=== PATIENT | female | born 1970 | race Caucasian/White ===

== ENCOUNTER 2024-03-21 12:11 | Emergency (ER) | payer BC, MEDICARE, SELFPAY ==
--- NOTE | ~2024-03-21 | CT_ITS ---
EXAMINATION: CTA chest PE protocol DATE: 03/21/2024 15:43 INDICATION: Chest pain TECHNIQUE: Computed tomography (CT) pulmonary angiogram of the chest was performed with 100 mL Omnipa que-350 intravenous contrast. Additional 3D reconstructions utilizing coronal maximum intensity proje ction (MIP) were performed. Automated exposure control and iterative reconstruction technique were em ployed. The dose-length product was 308.09 mGy-cm. COMPARISON: 10/31/2020 FINDINGS: No pulmonary embolism. Minimal dependent atelectasis in the right lower lobe. No pulmonary edema, pne umonia, pleural effusion or pneumothorax. Heart size is normal. No pericardial effusion. Thoracic aor ta is normal in caliber with no dissection. No pathologically enlarged thoracic lymphadenopathy. Unch anged dilation of the common bile duct and mild intrahepatic ductal or ductal dilation likely related to prior cholecystectomy with surgical clips the gallbladder fossa. Status post sleeve gastrectomy w ith suture line along the greater curvature of the stomach. Visualized upper abdomen is unremarkable. Mild thoracic spondylosis. IMPRESSION: 1. No pulmonary embolism or other acute cardiopulmonary disease. Reviewed, dictated and finalized at location A.
--- NOTE | ~2024-03-21 | XR_ITS ---
Clinical Indication: Chest pain PA and lateral views of the chest: Comparison: 10/31/2020 Findings: The lungs are clear, without evidence of focal consolidation or pleural effusion. Cardiome diastinal silhouette is within normal limits. Bones and soft tissues are unremarkable. Impression: Normal chest. Reviewed, dictated and finalized at location . Impression: Normal chest.
[2024-03-21 12:12] VITALS: BP 102/66; PULSE 72; RESP 18; TEMP 36.6; O2SAT 97
--- NOTE | 2024-03-21 12:14 | ECG_ITS ---
Test Date: 2024-03-21 12:18:53 Measurements Intervals [place] Rate: 64 P: 53 NC: 146 QRS: 23 QRSD: 85 T: 32 QT: 405 QTc: 420 Interpretive Statements SINUS RHYTHM NONSPECIFIC T-WAVE ABNORMALITY No previous ECG available for comparison Electronically Signed On 03-21-2024 14:19:21 CDT by Mahesh Valero M.D.
[2024-03-21 12:33] LABS: Basophils Absolute Auto 0.1 K/mm3 (0.0-0.1); Basophils Percent Auto 1.1 % (0.2-1.2); Eosinophils Absolute Auto 0.1 K/mm3 (0-0.3); Hematocrit 38.8 % (37.0-47.0); Hemoglobin 12.7 g/dL (12.0-15.0); Lymphocytes Percent Auto 56.3 % (18.3-44.2); Mean Corpuscular HGB Conc 32.7 g/dl (32-36); Mean Corpuscular Hemoglobin 30.4 pg (26-34); Mean Corpuscular Volume 92.8 fl (80-100); Mean Platelet Volume 9.3 fl (7.4-10.4); Monocytes Absolute Auto 0.4 K/mm3 (0.1-0.6); Monocytes Percent Auto 9.2 % (2.6-8.5); Neutrophils Absolute Auto 1.4 K/mm3 (1.3-6.7); Neutrophils Percent Auto 31.4 % (45.5-73.1); Platelet Count Result 256 k/mm3 (150-375); Red Blood Count 4.18 M/mm3 (4.2-5.4); Red Cell Distribution Width 14.3 % (11.5-14.5); White Blood Count 4.4 K/mm3 (4.5-10.0)
[2024-03-21 12:42] LABS: Alanine Aminotransferase 14 U/L (6-35); Alkaline Phosphatase 55 U/L (38-126); Anion Gap 9 mmol/L (4-12); Aspartate Amino Transferase 28 U/L (14-36); Bilirubin,Total 0.5 mg/dL (0.2-1.3); Blood Urea Nitrogen 11 mg/dL (7-17); Calcium 8.5 mg/dL (8.4-10.2); Carbon Dioxide 23 mmol/L (22-30); Chloride 107 mmol/L (98-107); Estimated CRCL calculation 77 ml/min; Estimated Glomerular Filt Rate > 60; Glucose 83 mg/dL (65-110); Lipase 58 U/L (23-300); Potassium 3.4 mmol/L (3.4-5.0); Sodium 139 mmol/L (137-145)
[2024-03-21 12:43] LABS: INR 0.9
[2024-03-21 12:44] LABS: Partial Thromboplastin Time 26.5 Seconds (22.3-36.8)
[2024-03-21 12:54] LABS: Troponin I < 0.012 ng/mL (0.000-0.034)
[2024-03-21 13:22] VITALS: PULSE 73; O2SAT 97
[2024-03-21 13:24] VITALS: BP 107/66; PULSE 65; RESP 19; O2SAT 97
[2024-03-21] MEDS: ONDANSETRON INJ 4 MG/2 ML VIAL IV PUSH ×2 (13:56→15:12)
[2024-03-21] MEDS: SODIUM CHLORIDE 0.9% IV 1,000 ML 999 ML (13:56)
[2024-03-21] MEDS: PANTOPRAZOLE SODIUM IV 40 MG VIAL IV PUSH (14:29)
--- NOTE | 2024-03-21 15:04 | ED.CHESTPAIN ---
HPI - Chest Pain General Chief Complaint: Chest Pain Stated Complaint: chest pain, Dizzy, SOB, Migrane Time Seen by Provider: 03/21/24 14:15 History of Present Illness HPI narrative: Patient is a 53-year-old female who presents to the emergency department this evening complaining of chest pain, nausea, vomiting, and migraine headaches. Patient admits to history of migraine headaches and states that she does have some medications that she takes at home for them, however, when the migraine headache gets this bad, nothing really helps not even the migraine cocktails that we administer, the only things that help are nausea medicine and pain medications such as morphine. Patient states that she has been started yesterday and initially she thought it was just pleurisy secondary to her lupus but it persisted and got worse this morning so she finally decided to come to the emergency department this morning. She admits to mild shortness of breath associated with the chest pain. Patient admits that the migraine feels similar to her regular migraines which are usually precipitated by something and today she believes it was precipitated by her chest pain and nausea. Patient admits to history of pulmonary emboli, denies any cardiac history including coronary artery disease. No additional symptoms or concerns at this time. Related Data Allergies Allergy/AdvReac Type Severity Reaction Status Date / Time amoxicillin [From Augmentin] Allergy Nausea and Verified 03/21/24 12:18 Vomiting clavulanic acid Allergy Nausea and Verified 03/21/24 12:18 [From Augmentin] Vomiting ketorolac [From Toradol] Allergy Rash Verified 03/21/24 12:16 levofloxacin [From Levaquin] Allergy Nausea and Verified 03/21/24 12:16 Vomiting Review of Systems Review of Systems: All systems are reviewed and are negative unless stated otherwise in the HPI. Exam Narrative: General: Alert, awake, afebrile, in no acute distress. HEENT: PERRL, no rhinorrhea, no post nasal drip, oropharynx clear, photophobia. Cardiovascular: Regular rate and rhythm, no murmurs, rubs or gallops, no peripheral edema. Respiratory: Clear to auscultation bilaterally, no tachypnea, no wheezing, no rhonchi, no rubs, no respiratory distress. Abdomen: Soft, nontender, nondistended, no rebound, no guarding, no peritoneal signs. Musculoskeletal: No joint swelling or deformity, normal muscle tone. Skin: No rashes or petechia, no signs of infection. Neurological: Alert and oriented to person, place, and time. Follows all commands. No focal deficits, speech is clear and fluent. Course Vital Signs Vital signs: Vital Signs Temperature 97.8 F 03/21/24 12:12 Pulse Rate 72 03/21/24 12:12 Respiratory Rate 18 03/21/24 12:12 Blood Pressure 102/66 03/21/24 12:12 Pulse Oximetry 97 03/21/24 12:12 Oxygen Delivery Room Air 03/21/24 12:12 Temperature 97.8 F 03/21/24 12:12 Pulse Rate 64 03/21/24 17:09 Respiratory Rate 19 03/21/24 17:09 Blood Pressure 113/74 03/21/24 17:09 Pulse Oximetry 97 03/21/24 17:09 Oxygen Delivery Room Air 03/21/24 13:22 MDM - Chest Pain MDM Narrative Medical decision making narrative: The patient was evaluated by myself in the emergency department. History is obtained from patient who is an independent historian and physical exam was performed. External medical records were reviewed at this time. IV was established and pertinent tests were ordered. Patient was administered a 1 L IV fluid bolus with normal saline, 4 mg IV Zofran and 4 mg of IV morphine. EKG was obtained which revealed sinus rhythm at a rate of 64 beats per minute, no evidence of acute ischemia. EKG was independently interpreted by me and is currently pending official cardiology read. Laboratory results obtained revealing no acute process. Imaging studies obtained included CXR which was independently interpreted by me revealing no acute process, which is
[2024-03-21] MEDS: MORPHINE SULFATE (*CRX) 4 MG/ML INJ IV PUSH (15:12)
[2024-03-21 16:10] VITALS: BP 108/69; PULSE 60; RESP 19; O2SAT 100
[2024-03-21 16:36] LABS: Troponin I < 0.012 ng/mL (0.000-0.034)
[2024-03-21] MEDS: MORPHINE SULFATE (*CRX) 2 MG/ML INJ IV PUSH (16:43)
[2024-03-21 17:09] VITALS: BP 113/74; PULSE 64; RESP 19; O2SAT 97
== END 2024-03-21 17:10 | disposition home or self-care (01) ==
PROVIDERS: Emergency Medicine; Emergency Provider Emergency Medicine; PCP Family Medicine
DX: R07.9 Chest pain, unspecified (principal); G43.909 Migraine, unspecified, not intractable, without status migrainosus
CPT/HCPCS: 36415; 71046; 71275; 80053; 83690; 84484; 85025; 85610; 85730; 93005; 96361; 96374; 96375; 96376; 99284; J2270; J2405; J2470; J7030; Q9967